=== PATIENT | male | born 1985 ===

== ENCOUNTER 2018-03-09 18:17 | Emergency (ER) | payer OTHER ==
[~2018-03-09] VITALS: Ht 175.3 cm; Wt 67.6 kg
== END 2018-03-09 19:57 | disposition home or self-care (01) ==
LOC: ER 18:17
DX: S01.312A Laceration without foreign body of left ear, initial encounter (principal); Z23 Encounter for immunization; W22.8XXA Striking against or struck by other objects, initial encounter
CPT/HCPCS: 12011; 90714; 96372; 99282